=== PATIENT | female | born 1985 | race Caucasian/White ===

== ENCOUNTER 2025-04-03 22:17 | Emergency (ER) | payer SELFPAY ==
[2025-04-03 22:19] VITALS: BP 131/104; PULSE 102; RESP 18; TEMP 36.8; O2SAT 100
--- NOTE | 2025-04-03 22:34 | ED_ITS ---
HPI - Ear Problem General Chief complaint: Ear Stated complaint: live moth in ear Time Seen by Provider: 04/03/25 22:19 History of Present Illness HPI Narrative: 39-year-old female presents emergency department concerns for a month in her left ear. Patient states just prior to arrival she was walking outside when normal fluid or ear. She feels it fluttering in her ear which is causing her discomfort. States she attempted to drawn it with water without success. Related Data Allergies Allergy/AdvReac Type Severity Reaction Status Date / Time Sulfa (Sulfonamide Allergy Intermediate Nausea and Verified 04/03/25 22:18 Antibiotics) Vomiting Review of Systems Review of Systems: All systems reviewed & are unremarkable except as noted in HPI and below Exam Narrative: GENERAL: Anxious appearing HEAD: Normocephalic, atraumatic. EYES: EOMI. ENT: Nares clear, no rhinorrhea or epistaxis. Mucous membranes moist. Live moth in left ear canal, fluttering NECK: Supple. CHEST: No respiratory distress. SKIN: Warm, dry, no rash. NEURO: No focal deficits. Alert and oriented x3 Course Vital Signs Vital signs: Vital Signs Temperature 98.3 F 04/03/25 22:19 Pulse Rate 102 H 04/03/25 22:19 Respiratory Rate 18 04/03/25 22:19 Blood Pressure 131/104 H 04/03/25 22:19 Pulse Oximetry 100 04/03/25 22:19 Oxygen Delivery Room Air 04/03/25 22:19 Temperature 98.3 F 04/03/25 22:19 Pulse Rate 102 H 04/03/25 22:19 Respiratory Rate 18 04/03/25 22:19 Blood Pressure 131/104 H 04/03/25 22:19 Pulse Oximetry 100 04/03/25 22:19 Oxygen Delivery Room Air 04/03/25 22:19 Procedures FB Removal Ear Foreign Body #1: Foreign Body Removal Date: 04/03/25 Foreign Body Removal Time: 22:51 Location: ear canal (L) Foreign Body Suspected: insect TM intact pre-procedure: unable to visualize If Insect Suspected: ear canal instilled with Lidocaine Foreign Body Removed: yes Foreign Body Removal Technique: instrumentation Tympanic Membrane Intact Post Procedure: Yes Patient Tolerated Procedure: well Complications: none Medical Decision Making MDM Narrative Medical decision making narrative: 39-year-old female presents emergency department for a month in her left ear that fluid prior to arrival. There is a live month fluttering patient's left ear canal on exam. Viscous lidocaine applied which successfully drowned the moth. Ramirez was removed with alligator forceps. Mouth intact after removal. After removal, exam shows an intact TM with no perforations, normal canals. Patient was advised to follow-up with her PCP and given return precautions. She is agreeable with the plan verbalized understanding. Discharged in stable condition. Vital Signs Vital Signs: Vital Signs Temperature 98.3 F 04/03/25 22:19 Pulse Rate 102 H 04/03/25 22:19 Respiratory Rate 18 04/03/25 22:19 Blood Pressure 131/104 H 04/03/25 22:19 Pulse Oximetry 100 04/03/25 22:19 Oxygen Delivery Room Air 04/03/25 22:19 Temperature 98.3 F 04/03/25 22:19 Pulse Rate 102 H 04/03/25 22:19 Respiratory Rate 18 04/03/25 22:19 Blood Pressure 131/104 H 04/03/25 22:19 Pulse Oximetry 100 04/03/25 22:19 Oxygen Delivery Room Air 04/03/25 22:19 Discharge Plan Discharge Clinical Impression: Ear foreign body Qualifiers: Encounter type: initial encounter Laterality: left Qualified Code(s): T16.2XXA - Foreign body in left ear, initial encounter Patient Disposition: Home Condition: Stable Instructions: Antibiotic Form, Ear Foreign Body (ED) Additional Instructions: Please return to the emergency department if you develop drainage from her ear, fever, ear pain or other concerning symptoms. Patient Language: Persian Follow-up/Referrals: PHYSICIAN,JOB TRAINING SUPERVISOR [Primary Care Provider] -
--- NOTE | 2025-04-03 22:46 | PC.NURSE ---
Moth successfully extracted from pt. L. ear by RAFFI Cook.
--- OUTSIDE RECORDS SUMMARY | 2025-04-03 22:55 | XMS_ITS | Referral Summary ---
Author Organization [facility] C Address [address] [place] [address] Care Team Providers Care Block Setter Gypsum Name Role Phone Adonis Mays MD Unavailable [phone] Ahmet Tim DO Unavailable Jordy Dumont MD Unavailable + Hiram Staples MD Primary Care Provider [phone] Encounters Date Type Department Care Team Description 03/07/2025 1:00 PM CDT Telemedicine [facility] Department of Psychiatry [address] [place] [phone] Екатерина Art DO Other specified anxiety disorder (Primary Dx); Other specified attention deficit hyperactivity disorder (ADHD) 01/16/2025 Documentation [facility] Department of Psychiatry [address] [place] [phone] Ayde Patterson BS 01/10/25 no show (01/10/25 no show letter sent both by [employer]ia and [employer] (1st offense return)) from Last 3 Months Allergies Active Allergy Reactions Criticality Noted Date Comments Sulfa (Sulfonamide Antibiotics) Nausea & Vomiting Low 08/04/2021 Medications cetirizine (ZyrTEC) 10 mg tablet Take 1 tablet (10 mg total) by mouth daily Active fluticasone propionate (FLONASE) 50 mcg/actuation nasal spray Administer 1 spray into each nostril daily 16 g 08/20/20 21 Active levalbuterol (XOPENEX HFA) 45 mcg/actuation inhalerIndications :Mild intermittent asthma without complication Inhale 1-2 puffs every 6 (six) hours as needed for wheezing or shortness of breath 1 each 3 07/09/20 22 Active nystatin powder Apply 1 Application topically 4 (four) times a day as needed (rash) Active glucosam-chondroit in-diet cb25 116-100 mg capsule Take by mouth daily Active mv-min/iron/folic/ calcium/vitK (WOMEN'S MULTIVITAMIN ORAL) Take by mouth Active ondansetron ODT (ZOFRAN-ODT) 4 mg disintegrating tablet Take 1 tablet (4 mg total) by mouth every 8 (eight) hours as needed for nausea or vomiting 20 tablet 09/04/20 24 Active ibuprofen (ADVIL,MOTRIN) 800 mg tablet Take 1 tablet (800 mg total) by mouth 3 (three) times a day 15 tablet 09/10/20 24 Active oxyCODONE-acetamin ophen (PERCOCET) 5-325 mg per tablet Take by mouth every 6 (six) hours as needed 11/01/19 25 Active valACYclovir (VALTREX) 1 gram tablet Take 1 tablet by mouth once daily 30 tablet 12/01/[address] (PROTONIX) 40 mg EC tablet Take 1 tablet by mouth once daily 30 tablet 12/30/19 25 Active dextroamphetamine- amphetamine XR (ADDERALL XR) 20 mg 24 hr capsule Take 1 capsule (20 mg total) by mouth every morning 30 capsule 03/07/20 25 025 Active hydrOXYzine (ATARAX) 25 mg tablet TAKE 2 TO 3 TABLETS BY MOUTH ONCE DAILY NEEDED FOR SEVERE ANXIETY ATTACKS 90 tablet 1 03/07/20 25 Active lamoTRIgine (LaMICtal) 200 mg tablet Take 1 tablet (200 mg total) by mouth daily 90 tablet 1 03/07/20 25 Active traZODone (DESYREL) 50 mg tablet Take 1 tablet (50 mg total) by mouth nightly as needed for sleep 90 tablet 1 03/07/20 25 025 Active prazosin (MINIPRESS) 1 mg capsule Take 1 capsule (1 mg total) by mouth nightly 90 capsule 1 03/07/20 25 Active venlafaxine 225 mg tablet extended release 24hr 24 hr tablet Take 1 tablet (225 mg total) by mouth daily 90 tablet 1 03/07/20 25 Active prazosin (MINIPRESS) 1 mg capsule Take 1 capsule (1 mg total) by mouth nightly 90 capsule 1 08/16/20 24 025 Discontin ued(Reord er) traZODone (DESYREL) 50 mg tablet Take 1 tablet (50 mg total) by mouth nightly as needed for sleep 90 tablet 1 08/16/20 24 025 Discontin ued(Reord er) dextroamphetamine- amphetamine XR (ADDERALL XR) 20 mg 24 hr capsule Take 1 capsule (20 mg total) by mouth every morning 30 capsule 10/20/19 25 025 Discontin ued(Reord er) hydrOXYzine (ATARAX) 25 mg tablet TAKE 2 TO 3 TABLETS BY MOUTH ONCE DAILY NEEDED FOR SEVERE ANXIETY ATTACKS 90 tablet 1 11/28/19 25 025 Discontin ued(Reord er) lamoTRIgine (LaMICtal) 200 mg tablet Take 1 tablet (200 mg total) by mouth daily 90 tablet 1 11/28/19 25 025 Discontin ued(Reord er) venlafaxine 225 mg tablet extended release 24hr 24 hr tablet Take 1 tablet (225 mg total) by mouth daily 90 tablet 1 11/28/19 25 025 Discontin ued(Reord er) Active Problems Problem Noted Date Diagnosed Date Common bile duct stone 11/08/2024 Encounter for removal of biliary stent Morbid obesity 10/31/2024 Assessment & Plan (10/31/2024 3:30 PM AIR MARSHAL): BMI 37. Hypokalemia 10/31/2024 Assessment & Plan (10/31/2024 3:29 PM AIR MARSHAL): K 2.8. Replace today. Normocytic anemia 10/31/2024 Assessment & Plan (10/31/2024 3:30 PM AIR MARSHAL): Hgb 10.8. Iron profile reviewed. Duodenal ulcer disease 10/31/2024 Assessment & Plan (10/31/2024 3:32 PM AIR MARSHAL): Seen on EGD. Cont PPI. Chest pain on breathing 10/30/2024 Anxiety 10/30/2024 Calculus of bile duct withou t cholecystitis with obstruction 10/28/2024 Kidney stone on left side 06/08/2024 Choledocholithiasis 10/06/2023 Assessment & Plan (10/31/2024 3:29 PM AIR MARSHAL): EGD 10/29/24. S/p CCY 10/30/24. Bili 1.3. AST 310. ALT 516. Alk phos 233. Severe pain since surgery yesterday. Incr dilaudid PRN and oxy PRN. Lipase 100. Assessment & Plan (10/06/2023 3:26 PM AIR MARSHAL): Notes intermittent sharp pain in pelvis during her periods. Always one sided, never both and alternates sides each month. Not severe that she has ever considered having to go to the ER. Discussed possible presence of scar tissue present from BTL causing pain vs ovulatory vs other Adult ADHD 07/09/2022 Assessment & Plan (07/09/2022 11:33 AM CDT): Psychological condition is stable on current RXs. Continue current treatment regimen. Regular aerobic exercise. Psychological condition will be reassessed at the next regular appointment. Followed by psychiatry Dr.Danielle Reinoso Allergic rhinitis 07/09/2022 Assessment & Plan (07/09/2022 11:47 AM CDT): Year round, no known seasonality Stable on current therapies-cont as prior HSV (herpes simplex virus) infection 07/09/2022 Assessment & Plan (07/09/2022 11:29 AM CDT): Chronic oral HSV Stable on suppressive therapy- cnt valcyclovir as prior Mild intermittent asthma without complication Assessment & Plan (07/09/2022 11:43 AM CDT): Mostly seasonal, intermittent KEY Refilled xopenex inhaler Q6hrs prn or preactivity RTC 1 yr or sooner with ongoing use, sx of exacerbation Bipolar affective disorder in remission 07/09/20 Assessment & Plan (10/31/2024 3:28 PM AIR MARSHAL): Continue Lamictal, venlafaxine, prazosin. Assessment & Plan (07/09/2022 11:33 AM CDT): Psychological condition is stable on current RXs. Continue current treatment regimen. Regular aerobic exercise. Psychological condition will be reassessed at the next regular appointment. Followed by psychiatry Dr.Danielle Reinoso Family history of diabetes mellitus 07/09/2022 Well woman exam with routine gynecological exam 09/02/2021 Assessment & Plan (10/06/2023 3:24 PM AIR MARSHAL): Contraception: BTL Pap smear: 2021 NILM, HRHPV neg Sexually transmitted disease screening: not indicated Mammogram: not indicated Osteoporosis with Dexa Scan: not indicated Colon Cancer Screening: not indicated Metabolic syndrome 08/04/2021 Assessment & Plan (08/04/2021 12:00 PM AIR MARSHAL): - Discussed concerns with patient for metabolic syndrome. - Order placed for PCOS/Metabolic syndrome Lab evalution - Patient to have these obtained today and will discuss at E in 2 weeks. Resolved Problems Problem Noted Date Diagnosed Date Resolved Date Calculus of kidney 07/05/2024 Annual physical exam 07/09/2022 023 Anxiety and depression 07/09/202207/09 Sterilization consult 04/09/20222021 Assessment & Plan (04/09/2022 3:27 PM CDT): - Discussed options for permanent sterilization with patient and recommendations for a LSC Bilateral salpingectomy. - Reviewed recommended removal of the entire fallopian tube. - Discussed the procedure at length today as well as possible risks including bleeding, infection and injury to other tissues and organs. We also discussed recovery timing. - Plan to schedule patient for LSC Bilateral salpingectomy with IUD removal after counseling. Non-suppurative otitis media 08/20/2021 07/09/2022 Sinus congestion 08/20/2021 07/09/2022 Encounter for medication refill 08/20/2021 07/09/2022 Vaginal irritation 08/04/2021 Assessment & Plan (08/04/2021 11:59 AM AIR MARSHAL): - Patient with reports of vaginal discharge with odor. - On exam there is a frothy discharge noted in the vagina. - Vaganitis swab obtained. - Will start patient on Flagyl 500 mg BID due to discharge and symptoms. Discussed likely BV diagnosis IUD check up 08/04/2021 01/04/2023 Assessment & Plan (08/04/2021 12:01 PM AIR MARSHAL): - IUD strings visualized today Immunizations Immunization Administration Dates Next Due Influenza, Quadrivalent, Spl it, Preservative Free, Intramuscular 07/29/2021 Influenza, Trivalent, Preser vative Free, Intramuscular 11/01/2024(Deferred: Patient Refused) Tdap 07/09/2022 Social History Tobacco Use Types Packs/Day Years Used Date Smoking Tobacco: Never Smokeless Tobacco: Never Tobacco Cessation:Counseling Given: Not Answered Alcohol Use Standard Drinks/Week Comments Yes 0 (1 standard drink = 0.6 oz pur e alcohol) rarely [facility] Utilities Answer Date Recorded In the past 12 months has [email or web address], gas, oil, or water [employer] threatened to shut off services in your home? Yes 10/31/2024 Social Connection and Isolat ion Panel [NHANES] Answer Date Recorded In a typical week, how many times do you talk on the phone with family, friends, or neighbors? More than three times a week 10/31/2024 How often do you get togethe r with friends or relatives? Once a week 10/31/2024 How often do you attend chur ch or taoism services? Never 10/31/2024 Do you belong to any clubs o r organizations such as confucianism groups, unions, fraternal or athletic groups, or school groups? No 10/31/2024 How often do you attend meet ings of the clubs or organizations you belong to? Never 10/31/2024 Are you , , di vorced, , never , or living with a partner? 10/31/2024 AUDIT-C Answer Date Recorded Q1: How often do you have a drink containing alc ohol? Monthly or less 12/14/2024 Q2: How many drinks containi ng alcohol do you have on a typical day when you are drinking? 1 or 2 12/14/2024 Q3: How often do you have si x or more drinks on one occasion? Never 12/14/2024 Overall Financial Resource Strain (CARDIA) Answe r Date Recorded How hard is it for you to pa y for the very basics like food, housing, medical care, and heating? Very hard 10/31/2024 PHQ-2 Answer Date Recorded PHQ-2 Total Score (If total score is 3 or more points, staff should administer the PHQ-9) 0 07/09/2022 Exercise Vital Sign Answer Date Recorde d On average, how many days pe r week do you engage in moderate to strenuous exercise (like a brisk walk)? 0 days 07/09/2022 On average, how many minutes do you engage in exercise at this level? 0 min 07/09/2022 Hunger Vital Sign Answer Date Recorded Within the past 12 months, y ou worried that your food would run out before you got the money to buy more. Often true 10/31/19 25 Within the past 12 months, t he food you bought just didn't last and you didn't have money to get more. Often true 10/31/2024 PRAPARE - Transportation Answer Date Re corded In the past 12 months, has l ack of transportation kept you from medical appointments or from getting medications? No 10/21 In the past 12 months, has l ack of transportation kept you from meetings, work, or from getting things needed for daily living? No 10/31/2024 Housing Stability Vital Sign Answer Alli e Recorded In the last 12 months, was t here a time when you were not able to pay the mortgage or rent on time? Yes 10/31/2024 In the past 12 months, how m any times have you moved where you were living? 0 10/31/2024 At any time in the past 12 m [facility], were you homeless or living in a alf (including now)? No 10/31/2024 Personal Safety Answer Date Recorded Have you ever been in or are you currently in a harmful physical or emotional relationship or is someone making you feel afraid or unsafe? Denies 12/14/2024 Comments No Sex and Gender Information Value Date Recorded Sex Assigned at Not on file Legal Sex Female 4:04 PM AIR MARSHAL Gender Identity Female 07/23/2022 6:47 PM CDT Sexual Orientation Bisexual 07/23/2022 6: 47 PM CDT Last Filed Vital Signs Vital Sign Reading Time Taken Comments Blood Pressure 138/85 12/14/2024 12:00 PM CDT Pulse 74 12/14/2024 12:00 PM CDT Temperature 36.2 C (97.2 F) 12/14/2024 11:00 AM CDT Respiratory Rate 12 12/14/2024 12:00 PM CDT Oxygen Saturation 99% 12/14/2024 12:00 PM CDT Inhaled Oxygen Concentration - - Weight 90.7 kg (200 lb) 12/14/2024 10:02 AM CDT Height 154.9 cm (5' 1) 12/14/2024 10:02 AM CDT Body Mass Index 37.79 12/14/2024 10:02 AM CDT Plan of Treatment Not on file Medical Devices Implanted Type Area Relationship Consultant Device Identifier Shelf Expiration Date Model / Serial / Lot [employer] Contour 6fr 24cm Large Inner Lumen Low Profile Bladder Jorge Taper Latex Free 180-222 - [id number] Implanted:Qty: 1 on 07/20/2024 by Adonis Mays MD at [facility] Left: Ureter [employer] 01/04/2027 [id number] / / [id number] Explanted Type Area Relationship Consultant Device Identifier Shelf Expiration Date Model / Serial / Lot [employer] 10fr 5cm Biliary Stent [id number] - [id number] Implanted:Qty: 1 on 10/29/2024 by Jordy Dumont MD at [facility] Explanted:Qty: 1 on 12/14/2024 by Jordy Dumont MD at [facility] Stent N/A: Bile Duct [employer] 08/04/2026 [id number] / / [id number] [employer] Contour 6fr 24cm Large Inner Lumen Low Profile Bladder Jorge Taper Latex Free 180-222 - [id number] Implanted:Qty: 1 on 06/08/2024 by Adonis Mays MD at [facility] Explanted:Qty: 1 on 07/20/2024 by Adonis Mays MD at [facility] Left: Ureter [employer] 01/04/2027 [id number] / / [id number] Procedures Procedure Name Priority Date/Time Associated Diagnosis Comments HEPATITIS PANEL, ACUTE STAT 10/27/2024 1:45 PM AIR MARSHAL PAP AND HIGH RISK HPV, REFLEX TO GENOTYPING Routine 09/07/2022 11:55 AM AIR MARSHAL Well woman exam with routine gynecological exam from Last 3 Months or Most Recently Relevant to Health Maintenance Results * Hepatitis panel, acute Blood (10/27/2024 1:45 PM AIR MARSHAL) Hep A IgM Nonreactive Nonreactive Comment: Interpretive Data: If Hep A IgM Ab is reported as Equivocal, a new sample should be drawn in two weeks for testing. Current interpretive data was last revised on 19. Testing performed by: [facility], [address] [place] [address]., [id number] Hep B core IgM Nonreactive Nonreactive Aliza REARDON [facility] (PACO) Comment: Interpretive Data If HepB Core IgM Ab is reported as Equivocal, a new sample should be drawn in two weeks for testing. Current interpretive data was last revised on 19. Testing performed by: [facility], [address] [place] [address]., [id number] Hep C Ab Nonreactive Nonreactive TD [facility] (PACO) Comment: Interpretive Data Nonreactive: Antibodies to HCV not detected. Does NOT exclude the possibility of recent exposure to HCV. Equivocal: Equivocal for HCV antibodies. Supplemental molecular testing will be automatically performed to determine infection status in accordance with current CDC screening recommendations. Reactive: Positive for HCV antibodies. This may represent current or past HCV infection. Supplemental molecular testing will be automatically performed to determine current infection status in accordance with current CDC screening recommendations. Interpretive data was last revised on 2019. Testing performed by: [facility], [address] [place] [address]., [id number] HepBsAg Nonreactive Nonreactive TD VIRIDIANA (PACO) Comment:Testing performed by : [facility], [address] [place] [address]., [id number] Blood 10/27/2024 1:45 PM AIR MARSHAL 10/27/2024 7:48 PM AIR MARSHAL us Ezekiel Bueno MD LAB MICROBIOLOGY - GENERAL ORDERABLES Final Result TD KEMP (PACO) 1 [facility] Department [place] [address] * Pap and High Risk HPV, reflex to Genotyping (09/07/2022 11:55 AM AIR MARSHAL) Thin prep (Pap test) 09/07/2022 11:55 AM AIR MARSHAL 09/15/2022 3:10 PM AIR MARSHAL Narrative PATHOLOGY [facility] - 09/18/2022 10:25 AM AIR MARSHAL EPIC results best viewed via link to PDF [address] [address] Tele: Terrie Richard MD - [employer] CYTOLOGY REPORT Note to Patients: This report may contain a detailed description of human tissue sent by a health care provider to the laboratory for pathologic evaluation. The content of this report is essential for diagnosis and may provide important critical findings. This information may be unfamiliar to patients to review without a medical professional present. It is advised that the patient review this report in the presence of a health care provider who can answer questions and explain the details. Patient Name: ROBERT HECTOR Address: [address] [place] [address] Gender: F : 1985 (Age: 36) Service: Location: Hospital #: [id number] Patient Type: MBC SPECIMEN Taken: 09/07/2022 Reported: 09/18/2022 Physician(s): Nathalie Castillo M.D. FINAL DIAGNOSIS: Specimen Type: - ThinPrep Pap and HPV w/ reflex Genotyping Statement of Specimen Adequacy: Source: Cervical/Endocervical - Satisfactory for interpretation - Endocervical/Transformation zone component absent or insufficient - Case screened using computer assisted imaging technology and manually re- screened by a payroll bookkeeper. General Categorization: - Negative for intraepithelial lesion or malignancy Interpretation: - Shift in jose luis suggestive of Bacterial Vaginosis - Specimen sent for reflex HPV testing. xbb/09/18/2022 10:25IRVING Hinojosa (ASCP) IRVING Turcios (ASCP)Report Reviewed and Electronically Signed By IRVING Turcios (ASCP)Clerical Data Follow A; [id number] ADDENDA: Addendum Comment Ancillary Testing: HPV Genotype 16 - Not Detected Reference Range: Not Detected HPV Genotype 18 - Not Detected Reference Range: Not Detected This test was performed using the NORMA 4800 IRVING Hinojosa (ASCP) Date Ordered: 09/17/2022 Status: Signed Out Date Complete: 09/23/2022 By: IRVING Hinojosa (ASCP) Date Reported: 09/23/2022 DIAGNOSIS COMMENT: Ancillary Testing: HPV High Risk Group (16, 18, 31, 33, 35, 39, 45, 51, 52, 56, 58, 59, 66 and 68) - Detected Reference Range: Not Detected This test was performed using the NORMA 4800 CLINICAL DIAGNOSIS AND HISTORY Last Menstrual Period: 08/17/2022 This specimen has been rescreened in accordance with the [facility] Laboratory Quality Management Program. REPORT IMAGES AND/OR SCANNED DOCUMENTS ONLY VIEWABLE IN PDF FORMAT The Pap test is a screening test used to aid in the detection of cervical cancer and its precursors. It should not be the sole means by which malignant and premalignant lesions are diagnosed. Both false negative and false positive results may occur. It also has poor sensitivity for the detection of endometrial lesions and should not be used to evaluate suspected endometrial abnormalities. For these reasons it is most important to obtain Pap tests at regular intervals, as recommended by your physician or nurse practitioner. Nathalie Castillo MD LAB CYTOLOGY ORDERABLES Final Result PATHOLOGY [facility] Laboratory Receiving [address] [place] [address] from Last 3 Months or Most Recently Relevant to Health Maintenance Insurance [employer] Directives For more information, please contact: [phone] * Full Code (Latest Code Status on File) Date Activated Date Inactivated Comments 12/14/2024 9:40 AM 12/14/2024 4:47 PM * Full Code Date Activated Date Inactivated Comments 10/28/2024 6:14 PM 11/01/2024 6:31 PM * Full Code Date Activated Date Inactivated Comments 06/08/2024 8:40 AM 06/09/2024 6:28 PM Care Teams Block Setter Gypsum Relationship Specialty Start Date End Date Hiram Staples MD [address] [place] [id number] PCP - General Emergency Medicine 11/08/24 Adonis Mays MD Consulting Physician Urology 06/09/24 Ahmet Tim DO [address] [facility] [phone] [place] [address] Consulting Physician General Surgery 10/31/24 Jordy Dumont MD [address] [place] [address] Consulting Physician Gastroenterology 11/01/24
--- OUTSIDE RECORDS SUMMARY | 2025-04-03 22:55 | XMS_ITS | Continuity of Care Document ---
Author Organization [facility] Address [facility] [place] [address] Phone Care Team Providers Care Subway Repair Supervisor Name Role Phone Joseph Michelle OSORIO Unavailable Unavailable Problems Condition Type Effective Dates (start - stop) Clini willy Status Comments No Known Problems Advance Directives Directive Yes / No Effective Date File Name No Information Encounters Encounter Description Practice Location Reason(s) For Visit Diagnoses Date Provider [facility], [facility] [place], [id number], tel:[phone] [facility] Kellee Montero No Information 2024 Jospeh Michelle. [facility] [place], [facility], . tel:[phone] [facility], [facility] [place], [id number], tel:[phone] [facility] Kellee Montero Encntr for obs for susp expsr to oth biolg agents ruled out 2019 Joseph Michelle. [address] [place], [facility], . tel:[phone] [facility], [facility] [place], [id number], tel:[phone] [facility] Kellee Montero virtual (chief complaint)co vid (chief complaint) Encntr for obs for susp expsr to oth biolg agents ruled outAcute URIBody mass index (BMI) 39.0-39.9, adult 2019 Joseph Micehlle. [address] [place], [facility], . tel:[phone] Family History Family Member Type Diagnosis Age At Onset No Information Payers Payer name Insurance type Covered libertarian ID Authoriza tion(s) No Information Social History Type Description Quantity Date Captured Comments Sex Female Smoking Status No Information Chief Complaint And Reason For Visit No Information Plan Of Treatment Date Type Action Status Goal Cervical Cancer Screening. D ue on due Goal MMR Vaccine. Due on due Goal Td vaccine. Due on due Goal Tdap. Due on due Goal Depression screening. Due on due Goal Flu Vaccine. Due on due Goal Lifestyle education regardin g diet completed History Of Present Illness Encounter Date Complaint History Of Prese nt Illness covid seeking covid te sting.symptoms: cough, laryngitis, sneezing, sinus pressure, body aches, headache x5 days.known exposure: noneif known exposure, last date of exposure:medical hx: asthma -uses inhaler intermittentlytobacco: none virtual Nurse start time : 8;39Nurse end time:8;41provider start time: 0841provider end time: 0843total time: 4 minutesClinical staff spoke with the patient and obtained verbal consent to receive medical care over the telephone, with the understanding that this method of communication is not compliant with all applicable privacy laws and, due to the current COVID-19 emergency, the patient agreed to continue to be provided care in this manner. Patient's identity was verified. Any vital signs documented on this encounter were provided by the patient. : [phone] Instructions Date Instruction Additional Infor miriamion Stay hydrated! Drink lots of fluids (aim for half your body weight in ounces). Get lots of rest!Warm moist air (humidifier) can be helpful.Use saline nasal rinses or sprays to help with congestion.Lozenges, sprays, or Warm salt water gargles help with sore throat.Use Guaifenesin to help break up mucous.Avoid smoking and second hand smoke. This will not only make symptoms worse but it will make them last longer.Upper respiratory infections usually resolve on their own within 14 days and sometimes the cough can last longer If you are concerned or not improving please return to the clinic for further exam.If you have trouble breathing please go the the ER.Contact precautions discussed to include hand washing, recommended patient wear a mask and use cough hygeine Related to Acute URI covid testing to be scheduled. continue quarantine until 72 hours past symptoms and negative testing.practice safe hand washing, cleaning surfaces, f/u testing as needed. practice cough and sneeze hygeine.ER if shortness of breath or trouble breathing, chest pain or confusion, excessive fatigue.we will notify you as soon as we have results. average is 3-5 days Related to Encntr for obs for susp expsr to oth biolg agents ruled out Lifestyle education regarding di et Related to Body mass index [BMI] 39.0-39.9, adult Giving encouragement to exercise Related to Body mass index [BMI] 39.0-39.9, adult Assessments Type Assessment Date No Information
--- OUTSIDE RECORDS SUMMARY | 2025-04-03 22:55 | XMS_ITS | Clinical Summary ---
Author Organization [facility] Address [address] [place] [address] Phone Care Team Providers Care Medical Billing Assistant Name Role Phone Sue Finley APRN, LIBRARY HISTORIAN Primary Care Provider Chris Ho APRN, ION Unavailable + [phone] Allergies Active Allergy Reactions Criticality Noted Date Comments Sulfa Antibiotics Nausea Low 08/04/2021 Medications amphetamine-dex troamphetamine (ADDERALL XR) 20 MG CAPSULE SR 24 HR Take 20 mg by mouth. 05/12/2024 Active cetirizine (ZyrTEC) 10 MG Tablet Take 10 mg by mouth daily. Active Venlafaxine HCl XR (EFFEXOR-XR) 225 MG TABLET SR 24 HR Take 1 Tablet by mouth daily. 05/12/2024 Active traZODone (DESYREL) 50 MG Tablet Take 50 mg by mouth. 12/09/2023 Active HYDROcodone-lynda taminophen (NORCO) 5-325 MG TabletIndicatio ns:Left ureteral stone Take 1 Tablet by mouth every 6 hours as needed for Moderate or more severe pain. 20 Tablet 07/14/2024 Active Social History Tobacco Use Types Packs/Day Years Used Date Smoking Tobacco: Never Smokeless Tobacco: Never Tobacco Cessation:Counseling Given: Not Answered Comments No Sex and Gender Information Value Date Recorded Sex Assigned at Not on file Legal Sex Female 3:26 PM CDT Gender Identity Not on file Sexual Orientation Not on file Last Filed Vital Signs Vital Sign Reading Time Taken Comments Blood Pressure 150/94 06/19/2024 10:13 AM CDT Pulse 89 06/19/2024 10:13 AM CDT Temperature - - Respiratory Rate 20 06/19/2024 10:13 AM CDT Oxygen Saturation 99% 06/19/2024 10:13 AM CDT Inhaled Oxygen Concentration - - Weight 90.7 kg (200 lb) 06/19/2024 10:13 AM CDT Height 154.9 cm (5' 1) 06/19/2024 10:13 AM CDT Body Mass Index 37.79 06/19/2024 10:13 AM CDT Plan of Treatment Health Maintenance Due Date Last Done Comments Hepatitis C Virus (HCV) Screening 1985 Human Papillomavirus (HPV) Immunization (1 - 3-dose series) 2002 Hepatitis B Immunization (1 of 3 - 19+ 3-dose series) 2006 Pap Smear 2008 Cervical Cancer Screening (CCS) 2017 HPV/Cotest 2017 SARS-COV-2 Immunization ( season) 2024 07/29/2021, 11/20/2020, 10/30/2020 Influenza Immunization (#1) 2025 07/29/2021 Respiratory Syncytial Virus (RSV) Immunization (Adult) (1 - 1-dose 75+ series) 2062 TdaP Immunization Completed 07/09/2022 Meningococcal Immunization (ACWY) Aged Out No longer eligible b ased on patient's age to complete this topic Pneumococcal Immunization Combined Aged Out No longer eligible b ased on patient's age to complete this topic Rotavirus Immunization Aged Out No lo nger eligible based on patient's age to complete this topic Care Teams Medical Billing Assistant Relationship Specialty Start Date End Date Sue Finley, TOOL AND DIE INSPECTOR, LIBRARY HISTORIAN [address] [place] [address] PCP - General Advanced Practice Nurse 06/12/24 Chris Ho APRN, LIBRARY HISTORIAN [address] [place] [address] Nurse Practitioner Advanced Practice Nurse 06/19/24
--- OUTSIDE RECORDS SUMMARY | 2025-04-03 22:55 | XMS_ITS | Clinical Summary ---
Author Organization [facility] Address [address] [place] [address] Care Team Providers Care Cable Puller Name Role Phone Adonis Mays MD Unavailable [phone] Ahmet Tim DO Unavailable Jordy Dumont MD Unavailable + Hiram Staples MD Primary Care Provider [phone] Allergies Active Allergy Reactions Criticality Noted Date [...] 10/31/2024 Assessment & Plan (10/31/2024 3:30 PM ASSISTANT PLANT CONTROLLER): BMI 37. Hypokalemia 10/31/2024 Assessment & Plan (10/31/2024 3:29 PM ASSISTANT PLANT CONTROLLER): K 2.8. Replace today. Normocytic anemia 10/31/2024 Assessment & Plan (10/31/2024 3:30 PM ASSISTANT PLANT CONTROLLER): Hgb 10.8. Iron profile reviewed. Duodenal ulcer disease 10/31/2024 Assessment & Plan (10/31/2024 3:32 PM ASSISTANT PLANT CONTROLLER): Seen on EGD. Cont PPI. Chest pain on breathing 10/30/2024 Anxiety 10/30/2024 Calculus of bile duct withou t cholecystitis with obstruction 10/28/2024 Kidney stone on left side 06/08/2024 Choledocholithiasis 10/06/2023 Assessment & Plan (10/31/2024 3:29 PM ASSISTANT PLANT CONTROLLER): EGD 10/29/24. S/p CCY 10/30/24. Bili 1.3. AST 310. ALT 516. Alk phos 233. Severe pain since surgery yesterday. Incr dilaudid PRN and oxy PRN. Lipase 100. Assessment & Plan (10/06/2023 3:26 PM ASSISTANT PLANT CONTROLLER): Notes intermittent sharp pain in pelvis during [...] 07/09/20 Assessment & Plan (10/31/2024 3:28 PM ASSISTANT PLANT CONTROLLER): Continue Lamictal, venlafaxine, prazosin. Assessment & Plan (07/09/2022 11:33 AM CDT): Psychological condition is stable on current RXs. Continue current treatment regimen. Regular aerobic exercise. Psychological condition will be reassessed at the next regular appointment. Followed by psychiatry Dr.Danielle Reinoso Family history of diabetes mellitus 07/09/2022 Well woman exam with routine gynecological exam 09/02/2021 Assessment & Plan (10/06/2023 3:24 PM ASSISTANT PLANT CONTROLLER): Contraception: BTL Pap smear: 2021 NILM, HRHPV neg Sexually transmitted disease screening: not indicated Mammogram: not indicated Osteoporosis with Dexa Scan: not indicated Colon Cancer Screening: not indicated Metabolic syndrome 08/04/2021 Assessment & Plan (08/04/2021 12:00 PM ASSISTANT PLANT CONTROLLER): - Discussed concerns with patient for metabolic [...] 08/04/2021 Assessment & Plan (08/04/2021 11:59 AM ASSISTANT PLANT CONTROLLER): - Patient with reports of vaginal discharge with odor. - On exam there is a frothy discharge noted in the vagina. - Vaganitis swab obtained. - Will start patient on Flagyl 500 mg BID due to discharge and symptoms. Discussed likely BV diagnosis IUD check up 08/04/2021 01/04/2023 Assessment & Plan (08/04/2021 12:01 PM ASSISTANT PLANT CONTROLLER): - IUD strings visualized today Encounters Date Type Department Care Team Description 03/07/2025 1:00 PM CDT Telemedicine [facility] Department of Psychiatry [address] [place] [address] Екатерина Art DO Other specified anxiety disorder (Primary Dx); Other specified attention deficit hyperactivity disorder (ADHD) 01/16/2025 Documentation [facility] Department of Psychiatry [address] [place] [address] Ayde Patterson BS 01/10/25 no show (01/10/25 no show letter sent both by [employer] and [employer] (1st offense return)) from Last 3 Months Immunizations Immunization Administration Dates Next Due Influenza, Quadrivalent, Spl it, Preservative Free, Intramuscular 07/29/2021 Influenza, Trivalent, Preser vative Free, Intramuscular 11/01/2024(Deferred: Patient Refused) Tdap 07/09/2022 Surgical History Surgery Date Site/Laterality Comments APPENDECTOMY TUBAL LIGATION 11/2022 OTHER SURGICAL HISTORY 06/08/2024 CYSTOSCOPY PLACEMENT LEFT URETERAL STENT CHOLECYSTECTOMY Medical History Medical History Date Comments FH: mental illness Anemia Anxiety 2002 Asthma Depression 2002 Bipolar 2 disorder (HCC) Adhd Gastric ulcer Family History Medical History Relation Name Comments Mental illness Brother 1 Diabetes Brother 2 Rufino Mental illness Brother 2 Rufino Obesity Brother 2 Rufino Allergy (severe) Father Israel Asthma Father Israel Diabetes Father Israel Hearing loss Father Israel Hypertension Father [place] Obesity Father [place] Mental illness Father's Sister Kristin Anemia Mother Zohreh Depression Mother Zohreh Roland's thyroiditis Mother Zohreh Hearing loss Mother Zohreh Mental illness Mother Zohreh Obesity Mother Zohreh Mental illness Mother's Sister 1 Depression Mother's Sister 2 Vidhya Mental illness Mother's Sister 2 Vidhya Depression Mother's Sister 3 Monique Mental illness Mother's Sister 3 Monique Depression Mother's Sister 4 Sumaya Mental illness Mother's Sister 4 Sumaya Diabetes Paternal Grandfather Diabetes Paternal Grandmother Breast cancer Neg Hx Cervical cancer Neg Hx Colon cancer Neg Hx Coronary artery disease Neg Hx Ovarian cancer Neg Hx Stroke Neg Hx Uterine cancer Neg Hx Relation Name Status Comments Brother 1 Brother 2 Rufino Father [place] Father's Sister Kristin Mother Zohreh Mother's Sister 1 Mother's Sister 2 Vidhya Mother's Sister 3 Monique Mother's Sister 4 Sumaya Paternal Grandfather Paternal Grandmother Social History Tobacco Use Types Packs/Day Years Used Date Smoking Tobacco: Never Smokeless Tobacco: Never Tobacco Cessation:Counseling Given: Not Answered Alcohol Use Standard Drinks/Week Comments Yes 0 (1 standard drink = 0.6 oz pur e alcohol) rarely [facility] Utilities Answer Date Recorded In the past 12 months has th [employer] electric, gas, oil, or water company threatened to shut off services in your [...] week 10/31/2024 How often do you attend [facility] ch or congregational services? Never 10/31/2024 Do you belong to any clubs o r organizations such as yarsanism groups, unions, fraternal or athletic groups, or [...] any time in the past 12 m [facility], were you homeless or living in a senior living (including now)? No 10/31/2024 Personal Safety Answer Date Recorded Have you ever been in or are you currently in a harmful physical or emotional relationship or is someone making you feel afraid or unsafe? Denies 12/14/2024 Comments No Sex and Gender Information Value Date Recorded Sex Assigned at Not on file Legal Sex Female 4:04 PM ASSISTANT PLANT CONTROLLER Gender Identity Female 07/23/2022 6:47 PM CDT Sexual Orientation Bisexual 07/23/2022 6: 47 PM CDT Obstetrics History Para Term AB IAB SAB Ectopic Multiple Livin g Live Births 0 0 0 0 0 0 0 0 0 0 0 Last Filed Vital Signs Vital Sign Reading [...] 12/14/2024 10:02 AM CDT Plan of Treatment Health Maintenance Due Date Last Done Comments Varicella Vaccines (1 of 2 - 13+ 2-dose series) 2000 Hepatitis B Screening 2005 Pneumococcal vaccine <65 (1 of 2 - PCV) 2006 Depression Screening 07/09/2023 07/09/2022 Cervical Cancer Screening 09/07/2023 09/07/2022 Covid-19 Vaccine ( season) 2024 07/29/2021, 11/20/2020, 10/30/2020 Regular Well Visit/Exam 18-64 10/06/2024 10/06/2023, 09/07/2022, 07/09/2022, Additional history exists Influenza Vaccine (#1) 2025 07/29/2021 DTaP/Tdap/Td Vaccine (2 - Td or Tdap) 07/09/2032 07/09/2022 Hepatitis C Screening Completed 10/27/2024 HPV Vaccines Aged Out No longer eligi ble based on patient's age to complete this topic Medical Devices Implanted Type Area Core Java Software Engineer Device Identifier Shelf Expiration Date Model / Serial / Lot [employer] Contour 6fr 24cm Large Inner Lumen Low Profile Bladder Jorge Taper Latex Free 180-222 - [id number] Implanted:Qty: 1 on 07/20/2024 by Adonis Mays MD at [facility] Left: Ureter [employer] Gary 01/04/2027 [id number] / / [id number] Explanted Type Area Core Java Software Engineer Device Identifier Shelf Expiration Date Model / Serial / Lot [employer] Gary 10fr 5cm Biliary Stent [id number] - [id number] Implanted:Qty: 1 on 10/29/2024 by TimJordy elkins MD at [facility] Explanted:Qty: 1 on 12/14/2024 by Jordy Dumont MD at [facility] Stent N/A: Bile Duct [employer] Gary 08/04/2026 [id number] / / [id number] [employer] Gary Contour 6fr 24cm Large Inner Lumen Low Profile Bladder Jorge Taper Latex Free 180-222 - [id number] Implanted:Qty: 1 on 06/08/2024 by Adonis Mays MD at [facility] Explanted:Qty: 1 on 07/20/2024 by Adonis Mays MD at [facility] Left: Ureter [employer] Gary 01/04/2027 [id number] / / [id number] Procedures Procedure Name Priority Date/Time Associated Diagnosis Comments HEPATITIS PANEL, ACUTE STAT 10/27/2024 1:45 PM ASSISTANT PLANT CONTROLLER PAP AND HIGH RISK HPV, REFLEX TO GENOTYPING Routine 09/07/2022 11:55 AM ASSISTANT PLANT CONTROLLER Well woman exam with routine gynecological exam from Last 3 Months or Most Recently Relevant to Health Maintenance Results * Hepatitis panel, acute Blood (10/27/2024 1:45 PM ASSISTANT PLANT CONTROLLER) Hep A IgM Nonreactive Nonreactive Comment: Interpretive Data: If Hep A IgM Ab is reported as Equivocal, a new sample should be drawn in two weeks for testing. Current interpretive data was last revised on 19. Testing performed by: [facility], [address] [place] [address]., [id number] Hep B core IgM Nonreactive Nonreactive C ALEXYS [facility] (PACO) Comment: Interpretive Data If HepB Core IgM Ab is reported as Equivocal, a new sample should be drawn in two weeks for testing. Current interpretive data was last revised on 19. Testing performed by: [facility], [address] [place] [address]., [id number] Hep C Ab Nonreactive Nonreactive TD AM[facility] [...] last revised on 2019. Testing performed by: [facility], [address] [place] [address]., [address] HepBsAg Nonreactive Nonreactive TD KEMP (PACO) Comment:Testing performed by : [facility], [address] [place] [address]., [id number] Blood 10/27/2024 1:45 PM ASSISTANT PLANT CONTROLLER 10/27/2024 7:48 PM ASSISTANT PLANT CONTROLLER us Ezekiel Bueno MD LAB MICROBIOLOGY - GENERAL ORDERABLES Final Result TD VIRIDIANA (APCO) [address] [facility] Department [place] [address] * Pap and High Risk HPV, reflex to Genotyping (09/07/2022 11:55 AM ASSISTANT PLANT CONTROLLER) Thin prep (Pap test) 09/07/2022 11:55 AM ASSISTANT PLANT CONTROLLER 09/15/2022 3:10 PM ASSISTANT PLANT CONTROLLER Narrative PATHOLOGY [facility] - 09/18/2022 10:25 AM ASSISTANT PLANT CONTROLLER EPIC results best viewed via link to PDF [address] [address] Tele: Terrie Richard MD - [place] Machine Operator CYTOLOGY REPORT Note to Patients: This report [...] the details. Patient Name: ROBERT HECTOR Address: [address] [place] [address] Gender: F : 1985 (Age: 36) Service: Location: [facility] #: [id number] Patient Type: [facility] SPECIMEN Taken: 09/07/2022 Reported: 09/18/2022 Physician(s): Nathalie Castillo M.D. FINAL DIAGNOSIS: Specimen Type: - ThinPrep Pap and HPV w/ reflex Genotyping Statement of Specimen Adequacy: Source: Cervical/Endocervical - Satisfactory for interpretation - Endocervical/Transformation zone component absent or insufficient - Case screened using computer assisted imaging technology and manually re- screened by a sustainable systems analyst. General Categorization: - Negative for intraepithelial lesion [...] has been rescreened in accordance with the [facility] Laboratory Quality Management Program. REPORT IMAGES AND/OR [...] recommended by your physician or nurse practitioner. us Nathalie Castillo MD LAB CYTOLOGY ORDERABLES Final Result PATHOLOGY [facility] Laboratory [address] [address] from Last 3 Months or Most Recently Relevant to Health Maintenance Insurance [id number] [place] [address] [employer] [facility] [facility] [employer]O Address: [facility] [address] [place] [address] Advance Directives For more information, please contact: [phone] * Full Code (Latest Code Status on File) Date Activated Date Inactivated Comments 12/14/2024 9:40 AM 12/14/2024 4:47 PM * Full Code Date Activated Date Inactivated Comments 10/28/2024 6:14 PM 11/01/2024 6:31 PM * Full Code Date Activated Date Inactivated Comments 06/08/2024 8:40 AM 06/09/2024 6:28 PM Care Teams Cable Puller Relationship Specialty Start Date End Date Hiram Staples MD [address] [address] PCP - General Emergency Medicine 11/08/24 Adonis Mays MD Consulting Physician Urology 06/09/24 Ahmet Tim DO [address] [facility] [id number] [place] [address] Consulting Physician General Surgery 10/31/24 Jordy Dumont MD [address] [place] [address] Consulting Physician Gastroenterology 11/01/24
--- OUTSIDE RECORDS SUMMARY | 2025-04-03 22:55 | XMS_ITS | Encounter Summary ---
Author Organization [facility] Healthcare Address [address] [place] [address] Care Team Providers Care Automotive Exhaust Emissions Technician Name Role Phone No, Physician Primary Care Provider Adonis Mays MD Unavailable +- [phone] Ahmet Tim DO Unavailable Jordy Dumont MD Unavailable + Hiram Staples MD Primary Care Provider + [phone] Encounter Details Date Type Department Care Team (Late st Contact Info) Description 09/19/2024 Documentation [facility] Health Information Management [address] [place] [address] Nina Garcia, RN Social History Tobacco Use Types Packs/Day Years Used Date Smoking Tobacco: Never Smokeless Tobacco: Never Alcohol Use Standard Drinks/Week Comments Yes 0 (1 standard drink = 0.6 oz pur e alcohol) rarely [facility] Utilities Answer Date Recorded In the past 12 months has th [employer] electric, gas, oil, or water company threatened to shut off services in your home? No 06/09/2024 Social Connection and Isolation Panel [NHANES] A nswer Date Recorded In a typical week, how many times do you talk on the phone with family, friends, or neighbors? Once a week 06/09/2024 How often do you get together with friends or re latives? Never 06/09/2024 How often do you attend scientology or lutheran serv ices? Never 06/09/2024 Do you belong to any clubs o r organizations such as scientology groups, unions, fraternal or athletic groups, or school groups? No 06/09/2024 How often do you attend meet ings of the clubs or organizations you belong to? Never 06/09/2024 Are you , , di vorced, , never , or living with a partner? 06/09/2024 AUDIT-C Answer Date Recorded Q1: How often do you have a drink containing alc ohol? Monthly or less 07/13/2024 Q2: How many drinks containi ng alcohol do you have on a typical day when you are drinking? 1 or 2 07/13/2024 Frequency of Binge Drinking Not on file 06/21 Overall Financial Resource Strain (CARDIA) Answe r Date Recorded How hard is it for you to pa y for the very basics like food, housing, medical care, and heating? Not hard at all 06/09/2024 PHQ-2 Answer Date Recorded PHQ-2 Total Score [...] you got the money to buy more. Never true 06/09/20 Within the past 12 months, t he food you bought just didn't last and you didn't have money to get more. Never true 06/09/2024 PRAPARE - Transportation Answer Date Re corded In the past 12 months, has l ack of transportation kept you from medical appointments or from getting medications? No 05/22 In the past 12 months, has l ack of transportation kept you from meetings, work, or from getting things needed for daily living? No 06/09/2024 Housing Stability Vital Sign Answer Alli e Recorded In the last 12 months, was t here a time when you were not able to pay the mortgage or rent on time? No 06/09/2024 In the past 12 months, how m any times have you moved where you were living? 0 06/09/2024 At any time in the past 12 m [facility], were you homeless or living in a halfway (including now)? No 06/09/2024 Personal Safety Answer Date Recorded Have you ever been in or are you currently in a harmful physical or emotional relationship or is someone making you feel afraid or unsafe? Denies 09/10/2024 Comments No Sex and Gender Information Value Date Recorded Sex Assigned at Not on file Legal Sex Female 4:04 PM [employer]ATER[employer]STER Gender Identity Female 07/23/2022 6:47 PM CDT Sexual Orientation Bisexual 07/23/2022 6: 47 PM CDT documented as of this encounter Plan of Treatment Not on file documented as of this encounter Visit Diagnoses Not on filedocumented in this encounter Additional Health Concerns Infection Onset Date Last Indicated Resolved Time COVID: Suspected 10/27/2024 10/27/2024 10/27/2024 1:33 PM WATERMASTER documented as of this encounter Care Teams Automotive Exhaust Emissions Technician Relationship Specialty Start Date End Date No, Physician PCP - General 06/08/24 11/07/24 Hiram Staples MD [address] [place] [id number] PCP - General Emergency Medicine 11/08/24 Adonis Mays MD Consulting Physician Urology 06/09/24 Ahmet Tim DO [address] [facility] [id number] [place] [address] Consulting Physician General Surgery 10/31/24 Jordy Dumont MD [address] [place] [address] Consulting Physician Gastroenterology 11/01/24 documented as of this encounter
== END 2025-04-03 23:06 | disposition home or self-care (01) ==
LOC: ANHED 22:53
PROVIDERS: Emergency Provider Physician Assistant
DX: T16.2XXA Foreign body in left ear, initial encounter (principal); W44.F4XA Insect entering into or through a natural orifice, initial encounter
CPT/HCPCS: 69200; 99282; J7120

== ENCOUNTER 2025-09-15 16:40 | Emergency (ER) | payer OTHER, SELFPAY ==
--- NOTE | 2025-09-15 16:45 | ED.GENADULT ---
HPI - General Adult General Chief complaint: Urogenital-Female Stated complaint: STI Time Seen by Provider: 09/15/25 16:45 Source: patient Mode of arrival: ambulatory Limitations: no limitations History of Present Illness HPI narrative: 39-year-old female patient presents to the [facility] with request for STD testing. Patient states that her and her are in an open Ngoc relationship and states that his her has been with more than 1 person recently. Patient states that she has only been with her has been recently. However her recently tested positive for Trichomonas about 3 days ago via a blood test. Patient coming in today to be tested for STDs he received treatment for the Trichomonas. Patient states she has no symptoms does not have any burning with urination, vaginal discharge or pain with intercourse. Patient states she has had a tubal ligation so denies . Related Data Allergies Allergy/AdvReac Type Severity Reaction Status Date / Time Sulfa (Sulfonamide Allergy Intermediate Nausea and Verified 09/15/25 16:58 Antibiotics) Vomiting Review of Systems Review of Systems: CONSTITUTIONAL: Denies fever, chills, or sweats. EYES: Denies visual changes, redness, or discharge. ENT: Denies rhinorrhea, congestion, sore throat, or otalgia. CARDIOVASCULAR: Denies chest pain, palpitations, or edema. RESPIRATORY: Denies cough or dyspnea. GASTROINTESTINAL: Denies abdominal pain, nausea, vomiting, or diarrhea. GENITOURINARY: Denies dysuria or hematuria. SKIN: Denies rash or itching. MUSCULOSKELETAL: Denies back pain, joint pain, or myalgia. NEUROLOGIC: Denies headache, numbness, or weakness. PSYCHIATRIC: Denies anxiety or depression. PMFSH Past Medical History Medical History (Updated 09/15/25 @ 17:32 by Yasmin Cuellar APRN) No significant past medical history Exam Narrative: GENERAL: Well-appearing, well-nourished, and in no acute distress. HEAD: Normocephalic, atraumatic. EYES: PERRLA and EOMI. ENT: Nares clear, no rhinorrhea or epistaxis. Mucous membranes moist. NECK: Supple. No lymphadenopathy CHEST: Clear to auscultation. No respiratory distress. HEART: Regular rate and rhythm. No murmur heard. Normal peripheral pulses. ABDOMEN: Soft, nontender, nondistended, normal active bowel sounds. EXTREMITIES: Normal range of motion. No edema. SKIN: Warm, dry, no rash. NEURO: No focal deficits. Alert and oriented x3. Course Course Level of Care: Express Care Visit Vital Signs Vital signs: Vital Signs Temperature 36.0 C L 09/15/25 16:57 Pulse Rate 96 09/15/25 16:57 Respiratory Rate 18 09/15/25 16:57 Blood Pressure 133/83 09/15/25 16:57 Pulse Oximetry 99 09/15/25 16:57 Oxygen Delivery Room Air 09/15/25 16:57 Temperature 36.0 C L 09/15/25 16:57 Pulse Rate 96 09/15/25 16:57 Respiratory Rate 18 09/15/25 16:57 Blood Pressure 133/83 09/15/25 16:57 Pulse Oximetry 99 09/15/25 16:57 Oxygen Delivery Room Air 09/15/25 16:57 vital signs reviewed. The patient has been informed that they may have pre-hypertension or Hypertension based on a BP reading in the department. I recommend that the patient call the primary care provider listed on their discharge instructions or a physician of their choice this week to arrange follow up for further evaluation of possible pre-hypertension or Hypertension MDM MDM Narrative Medical decision making narrative: plan care patients do a pelvic exam and test her today for gonorrhea, chlamydia, Trichomonas and BV. A urine dip was done we will also send that off to the lab for a culture. No test was done because patient has had a tubal ligation. Discussed with patient we will go ahead and treat her for the Trichomonas since we know that her is positive but we will wait for any other treatment until we get results. Patient is aware the plan of care denies any other questions or concerns at this time. Differential Diagnosis Differential Diagnosis: Differential diagnosis: Uncomplicated lower UTI, uncomplicated UTI, pyelonephritis Gonorrhea, chlamydia, Trichomonas, bacterial vaginosis, herpes, HIV, yeast infection, urinary tract infection. Lab Data Labs: Lab Results 09/15/25 Range/Units 17:14 POC Urine Color Yellow POC Urine Clarity Cloudy POC Urine pH 5.5 POC Ur Specif Bangs 1.030 POC Urine Protein 2+ (Negative) POC Ur Glucose (UA) Negative (Negative) POC Urine Ketones Negative (Negative) POC Urine Blood 2+ (Negative) POC Urine Nitrite Positive (Negative) POC Urine Bilirubin Negative (Negative) POC Urine Urobilinogen 0.2 POC U Leukocyte Esteras 1+ (Negative) Critical Care Time Critical Care Time Critical Care Time: No Discharge Plan Discharge Clinical Impression: Exposure to STD Patient Disposition: Home Condition: Stable Instructions: Antibiotic Form, Sexually Transmitted Diseases (ED), Safe Sex Practices (ED), Trichomoniasis (ED) Additional Instructions: Please do not engage in sexual activity for at least 7 days after being treated for STDs Take prescribed medication as directed. Contact your health care provider or report to the emergency department if: You have genital swelling or pain, or unusual bleeding. You have joint pain, rash, swollen lymph nodes or night sweats. You are severe abdominal pain. You have a fever. Symptoms do not go away or they get worse even after treatment. You have bleeding or pain during sex. Prevent the spread of an STD: Use condoms. Use a latex, and if you have oral, genital or anal sex. Use a polyurethane Marquise if you're allergic to latex. Do not douche. Douching upsets the normal bounds of bacteria that are found in your vagina. Do Not have Sex with someone who has an STD, this includes oral and anal sex. Limit sexual partners. Do not have sex during treatment. Get screening tests regularly if you're sexually active. Give vaccinated, vaccines may help your risk of some STDs. Patient Language: Azeri Prescriptions: New metronidazole 500 mg tablet 500 mg PO BID 7 Days Qty: 14 0RF Follow-up/Referrals: UNKNOWN,DOCTOR [Non-Staff] Time of Disposition: 17:32
[2025-09-15 16:57] VITALS: BP 133/83; PULSE 96; RESP 18; TEMP 36; O2SAT 99
[2025-09-15 17:17] LABS: EDUAAPPEAR Cloudy; EDUABILI Negative (Negative); EDUABLOOD 2+ (Negative); EDUACOLOR1 Yellow; EDUAGLUCOSE Negative (Negative); EDUAKETONE Negative (Negative); EDUALEUKO 1+ (Negative); EDUANITRATE Positive (Negative); EDUAPH 5.5; EDUAPROTEIN 2+ (Negative); EDUASPGRAVITY 1.030; EDUAUROBILI 0.2
[2025-09-16 19:00] LABS: Trichomonas Vag PCR DETECTED (NOT DETECTE)
== END 2025-09-15 17:43 | disposition home or self-care (01) ==
PROVIDERS: Emergency Provider Nurse Practitioner Family
DX: Z20.2 Contact with and (suspected) exposure to infections with a predominantly sexual mode of transmission (principal)
CPT/HCPCS: 81003; 87086; 87491; 87591; 87661; 87798; 99213; G0463